=== PATIENT | female | born 1995 | race Caucasian/White ===

== ENCOUNTER 2021-02-08 20:30 | Inpatient (IN) | payer OTHER, BC ==
[2021-02-08] MEDS ORDERED: TERBUTALINE 1 MG/ML VIAL SQ PRN (21:23)
[2021-02-08] MEDS ORDERED: OXYTOCIN 10 UNIT/ML 1 ML VIAL IM PRN (21:23)
[2021-02-08] MEDS ORDERED: METHYLERGONOVINE 0.2 MG/ML 1 ML AMP IM PRN (21:23)
[2021-02-08] MEDS ORDERED: CARBOPROST TROMETHAMINE 250 MCG/ML 1 ML AMP IM PRN (21:23)
[2021-02-08] MEDS ORDERED: LIDOCAINE 0.5% (PF) 5 MG/ML (50 ML SDV) SQ PRN (21:23)
[2021-02-08] MEDS: LACTATED RINGERS 1,000 ML IV SCH ×2 (21:30→23:14)
--- NOTE | 2021-02-08 21:31 | P.HPOB ---
History of Present Illness H&P Date: 02/08/21 This is a 19-year-old white female 1 para 0 EDC 02/08/2021 at 40 weeks gestation who presents with contractions from home. Fetus is been active throughout the . She wonders whether she has been having fluid leakage through the day, yellow mucousy fluid being produced. history significant for blood type O positive, rubella status nonimmune. Urine culture, HIV testing, gonorrhea and chlamydia cultures, group B strep cultures all negative. One-hour Glucola elevated, three-hour GTT within normal limits. Past medical history is significant for asthma, exercise-induced. Past surgical history is negative. Current medications omeprazole 20 mg tabs prior to meals when necessary, vitamin daily. ALLERGIES none known. Family history significant for hypertension and breast cancer. On exam patient is 5 foot 4 inches, 185 pounds, vital signs are stable and she is afebrile. I am told that the amnio sure testing is positive. Cervix is 2-3 cm dilated, 90% effaced, -2 station, vertex presentation. Artificial amniorrhexis reveals yellow mucousy fluid. heart tones consistent with reactive NST. Impression: 40 week intrauterine , early labor. All signs reassuring. Rubella status nonimmune. Group B strep cultures negative. Plan: Analgesic options reviewed. Consider oxytocin augmentation pending progress. Anticipate normal spontaneous vaginal delivery. Close maternal and surveillance Review of Systems Constitutional: Reports as per [facility] Medications and Allergies Home Medications Medication Instructions Recorded Confirmed Type Omeprazole [PriLOSEC] 1 tab PO DAILY 02/08/21 02/08/21 History Allergies Allergy/AdvReac Type Severity Reaction Status Date / Time No Known Allergies Allergy Verified 02/08/21 21:01 Exam Intake and Output 02/08/21 02/08/21 02/08/21 06:59 14:59 22:59 Other: Weight 79.379 kg See dictation under HPI please Assessment and Plan Assessment: 40 week intrauterine , early labor. Negative group strep cultures, possible membrane rupture earlier today. Plan: Close maternal and surveillance. Consider oxytocin augmentation pending clinical progress. Anticipate normal spontaneous vaginal delivery. Time with Patient: Less than 30
[2021-02-08 22:00] VITALS: RESP 16
[2021-02-08 22:28] LABS: Basophils # (A) 0.1 k/uL (0-0.2); Basophils % (A) 0 %; Eosinophils # (A) 0.1 k/uL (0-0.7); Eosinophils % (A) 1 %; HCT 37.7 % (34.0-46.0); Lymphocytes # (A) 2.2 k/uL (1.0-4.8); Lymphocytes % (A) 16 %; MCH 30.3 pg (25.0-35.0); MCHC 34.5 g/dL (31.0-37.0); MCV 87.9 fL (80.0-100.0); Mean Platelet Volume 9.5; Monocytes # (A) 0.8 k/uL (0-1.0); Monocytes % (A) 5 %; Neutrophils # (A) 10.6 k/uL (1.3-7.7); Neutrophils % (A) 76 %; Platelet Count 242 k/uL (150-450); RBC 4.29 m/uL (3.80-5.40); RDW 13.3 % (11.5-15.5); WBC 13.9 k/uL (3.8-10.6)
[2021-02-08] MEDS ORDERED: SODIUM CHLORIDE 0.9% 100 ML BAG ONE (22:37)
[2021-02-08] MEDS ORDERED: ROPIVACAINE 5MG/ML 20ML VIAL ONE (22:37)
[2021-02-08] MEDS ORDERED: fentaNYL (PF) 50 MCG/ML 5 ML AMP ONE (22:37)
[2021-02-08] MEDS ORDERED: PENICILLIN G POTASSIUM 5,000,000 UNIT in DEXTROSE 5% IN WATER 100 ML IVPB STA ×2 (23:07)
[2021-02-09] MEDS: PENICILLIN G POTASSIUM 2,500,000 UNIT in DEXTROSE 5% IN WATER 100 ML IVPB SCH ×4 (03:24→08:18)
[2021-02-09] MEDS: OXYTOCIN 30 UNITS/500 ML NS 30 UNIT in SALINE 1 500ML.BAG IV SCH ×2 (04:20→05:23)
[2021-02-09] MEDS ORDERED: diphenhydrAMINE 25 MG CAP PO PRN (04:47)
[2021-02-09] MEDS ORDERED: ACETAMINOPHEN TAB 325 MG TAB PO PRN (04:47)
[2021-02-09] MEDS ORDERED: HYDROCORTISONE 2.5% RECTAL CREAM 30 GM TUBE RECTAL PRN (04:47)
[2021-02-09] MEDS ORDERED: LANOLIN CREAM 5 GM TUBE TOPICAL PRN (04:47)
[2021-02-09] MEDS ORDERED: SIMETHICONE 80 MG CHEWABLE PO PRN (04:47)
[2021-02-09] MEDS ORDERED: diphenhydrAMINE 50 MG CAP PO PRN (04:47)
[2021-02-09] MEDS ORDERED: BENZOCAINE/MENTHOL SPRAY 1 GM/SPRAY AEROSOL TOPICAL PRN (04:47)
[2021-02-09] MEDS ORDERED: diphenhydrAMINE 50 MG/ML 1 ML VIAL IVP PRN ×2 (04:47)
[2021-02-09] MEDS ORDERED: ZOLPIDEM 5 MG TAB PO PRN (04:47)
--- NOTE | 2021-02-09 04:48 | P.PROBDLV ---
Vaginal Delivery Note - . Vaginal Delivery Note: This is a 25-year-old white female 1 para 0 EDC 02/08/2021 at 40 weeks gestation who presented in active labor from home. Upon questioning, she wondered whether she had been leaking fluid since 2320. Fetus is been active throughout the . Blood type O+, rubella nonimmune, group strep cultures negative. Please see dictated history and physical for details. Patient was admitted, epidural was placed per her request. heart tones were reassuring throughout the first and second stages of labor. Ultimately patient became completely dilated at 0351 hours and began the second stage of labor at that time. Perineal body was prepped and draped in usual sterile fashion. Infant's head delivered occiput anterior and restituted accordingly. There was no nuchal cord noted. The left or anterior shoulder was delivered from underneath the pubic symphysis at which time the oropharynx, nasopharynx, and external nares were all bulb suctioned. Patient was officially delivered of a liveborn male infant at 0420 hours. Umbilical cord was doubly clamped and ligated, he was handed to waiting nurses for evaluation where scores of 9 and 9 at one and 5 minutes respectively were given. The placenta delivered spontaneously, it was inspected and noted to be intact with trivascular cord at 0423 hours. Uterus is now massaged. Careful inspection of the cervix, vagina, perineum, periurethral, and perirectal areas revealed a second-degree perineal laceration. This was repaired in the usual fashion using local lidocaine and 3-0 repeat suture. Good reapproximation was noted. Fundus is firm and in the midline, symmetric and 18 week size. All sponge needle and enhancement counts are correct. Patient is requesting circumcision for her son.
[2021-02-09] MEDS ORDERED: LIDOCAINE (PF) 10 MG/ML 2 ML VIAL SQ PRN (04:49)
[2021-02-09] MEDS ORDERED: ACETAMINOPHEN 40 MG/1.25 ML ORAL.SYRG PO PRN (04:49)
[2021-02-09] MEDS ORDERED: SUCROSE 24% 2 ML AMP PO PRN (04:49)
[2021-02-09] MEDS: IBUPROFEN 600 MG TAB PO SCH ×4 (05:04→20:07)
[2021-02-09] MEDS: SENNOSIDES-DOCUSATE SODIUM 1 EACH TAB PO SCH ×2 (07:45→20:07)
[2021-02-09] MEDS ORDERED: MEASLES-MUMPS-RUBELLA VACC/PF 12,500 UNIT/0.5 ML VIAL SQ ONE (09:40)
[2021-02-10] MEDS: IBUPROFEN 600 MG TAB PO SCH ×3 (01:35→16:14)
[2021-02-10 06:47] LABS: Basophils % (A) 0 %; Eosinophils # (A) 0.1 k/uL (0-0.7); Eosinophils % (A) 1 %; HCT 29.6 % (34.0-46.0); HGB 10.3 gm/dL (11.4-16.0); Lymphocytes # (A) 1.9 k/uL (1.0-4.8); Lymphocytes % (A) 11 %; MCH 30.8 pg (25.0-35.0); MCHC 34.6 g/dL (31.0-37.0); MCV 88.9 fL (80.0-100.0); Mean Platelet Volume 9.1; Monocytes # (A) 0.7 k/uL (0-1.0); Monocytes % (A) 4 %; Neutrophils # (A) 13.7 k/uL (1.3-7.7); Neutrophils % (A) 83 %; Platelet Count 214 k/uL (150-450); RBC 3.34 m/uL (3.80-5.40); RDW 13.5 % (11.5-15.5); WBC 16.5 k/uL (3.8-10.6)
--- NOTE | 2021-02-10 08:27 | P.PN ---
Subjective Progress Note Date: 02/10/21 Principal diagnosis: Doing well day #1 Slept well. Minimal pain. Minimal lochia rubra. Breast-feeding going well. No complaints Objective - Vital Signs Vital signs: Vital Signs Temp 97.5 F L 02/10/21 00:00 Pulse 99 02/10/21 00:00 Resp 16 02/10/21 00:00 BP 134/80 02/10/21 00:00 Pulse Ox 98 02/10/21 00:00 Intake & Output 02/09/21 02/10/21 02/10/21 18:59 06:59 18:59 Other: # Voids 1 2 # Bowel Movements 1 - Constitutional General appearance: Present: average body habitus, cooperative - EENT Eyes: Present: PERRLA ENT: Present: hearing grossly normal - Respiratory Respiratory: bilateral: CTA - Cardiovascular Rhythm: regular - Gastrointestinal General gastrointestinal: Present: normal bowel sounds - Genitourinary Genitourinary Comment(s): Perineal body clean and dry, intact - Neurologic Neurologic: Present: CNII-XII intact - Musculoskeletal Musculoskeletal: Present: strength equal bilaterally - Psychiatric Psychiatric: Present: A&O x's 3, appropriate affect, intact judgment & insight - Labs CBC & Chem 7: 02/10/21 06:06 Labs: Abnormal Lab Results - Last 24 Hours (Table) 02/10/21 Range/Units 06:06 WBC 16.5 H (3.8-10.6) k/uL RBC 3.34 L (3.80-5.40) m/uL Hgb 10.3 L (11.4-16.0) gm/dL Hct 29.6 L (34.0-46.0) % Neutrophils # 13.7 H (1.3-7.7) k/uL Assessment and Plan Assessment: Doing well day #1 Plan: Continue care. Likely discharge home tomorrow. currently on BiliBlank[employer] and not cleared for discharge at this time. Time with Patient: Less than 30
[2021-02-10] MEDS: SENNOSIDES-DOCUSATE SODIUM 1 EACH TAB PO SCH ×2 (09:00→19:53)
[2021-02-11] MEDS: IBUPROFEN 600 MG TAB PO SCH ×4 (00:24→14:06)
[2021-02-11 02:00] VITALS: TEMP 97.8
[2021-02-11 08:16] VITALS: BP 122/75; PULSE 77
--- NOTE | 2021-02-11 08:51 | P.DS ---
Providers Date of admission: 02/08/21 21:05 Expected date of discharge: 02/11/21 Attending physician: Phan Talamantes Primary care physician: Stated None - Discharge Diagnosis(es) (1) Normal spontaneous vaginal delivery Current Visit: Yes Status: Acute Hospital Course: The patient is a 25-year-old 1 para 0 admitted at 40-0/7 weeks by good dating parameters perches admitted in early active labor with documented spontaneous rupture of membranes and all signs reassuring. Her has been entirely uncomplicated and group B strep status is negative. On labor and delivery, she made progress on her own and had an epidural catheter placed for analgesia. She then ultimately progressed to complete where after she pushed to a normal spontaneous vaginal delivery of a viable 8 lbs. 11 oz. baby boy with Apgars of 9 at 1 minute and 9 at 5 minutes. Her course was unremarkable with vital signs or any stable and her temperature was afebrile throughout. She was deemed stable for discharge on day #2 and was discharged home to follow-up in the office in 6 weeks' time routinely. Discharge instructions included calling for any significantly increased bleeding or foul-smelling lochia, significantly increased fever abdominal pain, perineal complaints, breast complaints, or anything else that concerned her. She is additionally instructed to have nothing in the vagina for at least 6 weeks time to include intercourse. She understood her instructions and agrees to follow up as noted above. Discharge medications included continued vitamins as she has opted to at least try to pump. She additionally was to use [id number] analgesic pain medications as needed. Maternal blood type is O+ and rubella status is nonimmune. As a result, she was to receive the MMR vaccination prior to discharge. Procedures: #1. Epidural analgesia 2. Normal spontaneous vaginal delivery #3. Repair of perineal laceration Patient Condition at Discharge: Stable Plan - Discharge Summary New Discharge Prescriptions: No Action Omeprazole [PriLOSEC] 1 tab PO DAILY Discharge Medication List Omeprazole [PriLOSEC] 1 tab PO DAILY 02/08/21 [History] Follow up Appointment(s)/Referral(s): Phan Talamantes MD [STAFF PHYSICIAN] - 6 Weeks Discharge Disposition: HOME SELF-CARE
[2021-02-11] MEDS: SENNOSIDES-DOCUSATE SODIUM 1 EACH TAB PO SCH (09:27)
== END 2021-02-11 15:15 | disposition home or self-care (01) | DRG 807 ==
LOC: FBPOP 20:30 → 4FBP 21:05
PROVIDERS: ADMIT Obstetrics & Gynecology; ATTEND Obstetrics & Gynecology
PROC: 0KQM0ZZ Repair Perineum Muscle, Open Approach (ICD-10-PCS; principal; 2021-02-09)
PROC: 10E0XZZ Delivery of Products of Conception, External Approach (ICD-10-PCS; 2021-02-09)
DX: O70.1 Second degree perineal laceration during delivery (principal); Z37.0 Single live birth; Z3A.40 40 weeks gestation of pregnancy
CPT/HCPCS: 59025; 84112; 85025; 86850; 86900; 86901; 88307; 90707; 99213

== ENCOUNTER → 2022-05-15 | Outpatient (CLI) | payer BC ==
--- NOTE | 2022-05-15 11:52 | US ---
EXAMINATION TYPE: Ultrasound OB <= 14 week fetus DATE OF EXAM: 05/15/2022 11:02 AM COMPARISON: NONE CLINICAL HISTORY: 26-year-old female O26.851 SPOTTING COMPLICATING . EXAM PERFORMED: Transvaginal (TV) and Transabdominal (TA) FINDINGS: EXAM MEASUREMENTS: GESTATIONAL AGE / DATING Physician Established: Not yet established Dates by LMP: ( 5 weeks/4 days) EDC: 01/11/2023 Dates by First Scan: No previous this is first scan Dates by Current Scan for: No IUP seen at this time MATERNAL ANATOMY Uterus: Retroverted measuring 7.6 x 4.5 x 5.3 cm Right Ovary: 3.9 x 2.2 x 2.4 cm Left Ovary: 3.3 x 1.9 x 2.2 cm Post CDS / Adnexa: no Presence of free fluid: yes, mild to moderate Presence of corpus luteal cyst: no Presence of subchorionic bleed: no GESTATION / SURVEY IUP: No IUP seen at this time Date of LMP: 04/06/2022 Beta HcG (if available): Not available at this time IMPRESSION: 1. Retroverted uterus. No visualized intrauterine at this time. Correlate with beta-hCG lev els. A level of 2000 would be the threshold for visualization of a gestational sac by transvaginal sc anning. 2. Currently, differential considerations include too early to visualize intrauterine , fail ed , and nonvisualized ectopic . Appropriate follow-up recommended to ensure the de velopment of a viable . 3. Mild to moderate cul-de-sac free fluid. Again, appropriate follow-up recommended.
== END | disposition home or self-care (01) ==
LOC: RADUSWWP 10:14
PROVIDERS: ATTEND Obstetrics & Gynecology
DX: O26.851 Spotting complicating pregnancy, first trimester (principal); O20.0 Threatened abortion; Z3A.01 Less than 8 weeks gestation of pregnancy
CPT/HCPCS: 76801; 84702

== ENCOUNTER → 2022-05-17 | Outpatient (CLI) | payer BC | END | disposition home or self-care (01) | LOC: LABWHC1 08:30 | PROVIDERS: ATTEND Obstetrics & Gynecology | DX: O20.0 Threatened abortion (principal); Z3A.00 Weeks of gestation of pregnancy not specified | CPT/HCPCS: 36415; 84702 ==

== ENCOUNTER 2023-06-16 06:00 | Inpatient (IN) | payer BC ==
[2023-06-16] MEDS ORDERED: TRANEXAMIC 1,000 MG/100ML-NACL 1,000 MG in EMPTY BAG 1 BAG IV PRN (06:44)
[2023-06-16] MEDS ORDERED: OXYTOCIN 10 UNIT/ML 1 ML VIAL IM PRN (06:44)
[2023-06-16] MEDS ORDERED: LIDOCAINE 0.5% (PF) 5 MG/ML (50 ML SDV) SQ PRN (06:44)
[2023-06-16] MEDS ORDERED: miSOPROStoL 200 MCG TAB PO PRN (06:44)
[2023-06-16] MEDS ORDERED: METHYLERGONOVINE 0.2 MG/ML 1 ML AMP IM PRN (06:44)
[2023-06-16] MEDS ORDERED: CARBOPROST TROMETHAMINE 250 MCG/ML 1 ML AMP IM PRN (06:44)
[2023-06-16] MEDS ORDERED: TERBUTALINE 1 MG/ML VIAL SQ PRN (06:44)
[2023-06-16] MEDS: LACTATED RINGERS 1,000 ML IV SCH ×2 (06:45→10:36)
[2023-06-16] MEDS ORDERED: OXYTOCIN 30 UNITS/500 ML NS 30 UNIT in SALINE 1 500ML.BAG IV SCH ×2 (06:45→13:00)
[2023-06-16 07:07] LABS: Basophils % (A) 0 %; Eosinophils # (A) 0.1 k/uL (0-0.7); Eosinophils % (A) 1 %; HCT 38.1 % (34.0-46.0); HGB 12.9 gm/dL (11.4-16.0); Lymphocytes # (A) 1.5 k/uL (1.0-4.8); Lymphocytes % (A) 16 %; MCH 30.6 pg (25.0-35.0); MCHC 33.9 g/dL (31.0-37.0); MCV 90.3 fL (80.0-100.0); Mean Platelet Volume 9.5; Monocytes # (A) 0.4 k/uL (0-1.0); Monocytes % (A) 4 %; Neutrophils # (A) 6.9 k/uL (1.3-7.7); Neutrophils % (A) 77 %; Platelet Count 229 k/uL (150-450); RBC 4.22 m/uL (3.80-5.40); RDW 13.3 % (11.5-15.5)
[2023-06-16] MEDS ORDERED: NALBUPHINE 10 MG/ML (10 ML MDV) IV PRN (08:51)
--- NOTE | 2023-06-16 08:55 | P.HPOB ---
History of Present Illness H&P Date: 06/16/23 Chief Complaint: 39+ weeks, induction The patient is a 27-year-old 4 para 1021 admitted at 39+ weeks as established by last menstrual period and confirmed by 6 week ultrasound. She is admitted for elective induction of labor with all signs reassuring, category 1 heart rate tracing. Her has been entirely uncomplicated and group B strep status is negative. Obstetrical history: 4 para 10-1 with 1 term vaginal delivery and 2 early losses. Current statistics are listed in history of present illness. EDC of 06/20/2023 was established by last menstrual period and confirmed by 6 week ultrasound. Laboratory workup demonstrates a blood type of O+ with a negative antibody screen. Rubella status is immune. The remainder of the laboratory workup is within normal limits. One hour Glucola was normal and group B strep status is negative. Gynecologic history: Unremarkable with no history of any infections to include STDs. Review of Systems Review of systems is confined to history of present illness. Past Medical History Past Medical History: No Reported History History of Any Multi-Drug Resistant Organisms: None Reported Additional Past Surgical History / Comment(s): pt had surgery on her nose in 2011 due to a break Past Anesthesia/Blood Transfusion Reactions: No Reported Reaction Past Psychological History: No Psychological Hx Reported Smoking Status: Never smoker Past Alcohol Use History: None Reported Past Drug Use History: None Reported - Past Family History Father Family Medical History: No Reported History Mother Family Medical History: No Reported History Medications and Allergies Home Medications Medication Instructions Recorded Confirmed Type Omeprazole [PriLOSEC] 1 tab PO DAILY 02/08/21 06/16/23 History Vit No.179/Iron/Folic 1 tab PO DAILY 06/16/23 06/16/23 History [ Tablet] Allergies Allergy/AdvReac Type Severity Reaction Status Date / Time No Known Allergies Allergy Verified 06/16/23 06:42 Exam Intake and Output 06/15/23 06/16/23 06/16/23 22:59 06:59 14:59 Other: Weight 75.296 kg 75.296 kg In general, this is a well-developed, well-nourished white female in no acute distress. Her heart has a regular rhythm and rate without murmur. Her lungs are clear to auscultation bilaterally in all figueroa. Her abdomen is gravid, nondistended, has normal active bowel sounds, is soft, nontender, and without any palpable masses aside from the uterine fundus. Her extremities are without any cyanosis, clubbing, or edema and are nontender to palpation bilaterally. Digital cervical examination demonstrates her cervix to 3 cm dilated, 60% effaced, with the vertex in presentation at -2 station. Artificial rupture of membranes is carried out demonstrating clear fluid. Results Result Diagrams: 06/16/23 06:45 Assessment and Plan (1) Term Current Visit: Yes Status: Acute Code(s): Z34.90 - ENCNTR FOR SUPRVSN OF NORMAL , UNSP, UNSP TRIMESTER SNOMED Code(s): 65597758 Plan: The patient is admitted for induction of labor. Pitocin augmentation has been started and she has undergone artificial rupture of membranes. She will have close maternal and surveillance and expectant management will be practiced. She is a good candidate for either IV or epidural analgesia, whichever she may choose.
[2023-06-16] MEDS ORDERED: fentaNYL (PF) 50 MCG/ML 5 ML AMP ONE (10:23)
[2023-06-16] MEDS ORDERED: SODIUM CHLORIDE 0.9% 250 ML BAG ONE (10:23)
[2023-06-16] MEDS ORDERED: ROPIVACAINE 5 MG/ML 30 ML VIAL ONE (10:23)
[2023-06-16] MEDS ORDERED: BENZOCAINE/MENTHOL SPRAY 1 GM/SPRAY AEROSOL TOPICAL PRN (12:49)
[2023-06-16] MEDS ORDERED: diphenhydrAMINE 50 MG CAP PO PRN (12:49)
[2023-06-16] MEDS ORDERED: HYDROcodone/APAP 5-325MG 1 EACH TAB PO PRN (12:49)
[2023-06-16] MEDS ORDERED: diphenhydrAMINE 50 MG/ML 1 ML VIAL IVP PRN ×2 (12:49)
[2023-06-16] MEDS ORDERED: ZOLPIDEM 5 MG TAB PO PRN (12:49)
[2023-06-16] MEDS ORDERED: SIMETHICONE 80 MG CHEWABLE PO PRN (12:49)
[2023-06-16] MEDS ORDERED: HYDROcodone/APAP 7.5-325MG 1 EACH TAB PO PRN (12:49)
[2023-06-16] MEDS ORDERED: diphenhydrAMINE 25 MG CAP PO PRN (12:49)
[2023-06-16] MEDS ORDERED: HYDROCORTISONE 2.5% RECTAL CREAM 30 GM TUBE RECTAL PRN (12:49)
--- NOTE | 2023-06-16 12:53 | P.PROBDLV ---
Vaginal Delivery Note - . Vaginal Delivery Note: The patient is a 27-year-old 4 para 1021 admitted at 39-2/7 weeks by good dating parameters perches admitted for elective induction of labor with all signs reassuring and a favorable cervix. heart tones are category 1. Her has been uncomplicated and group B strep status is negative. On labor and delivery, she had Pitocin augmentation started and underwent artificial rupture of membranes for clear fluid. She progressed quickly through the latent phase of labor and had an epidural catheter placed for analgesia. She then progressed fairly quickly through the active phase of labor to complete and pushed over the course of approximately 5 minutes to a normal spontaneous vaginal delivery of a viable 7 lbs. 15 oz. baby girl with Apgars of 9 at 1 minute and 9 at 5 minutes delivered in the direct occiput anterior position. The placenta was delivered spontaneously, intact, and grossly normal with a grossly normal three-vessel cord inserted approximate 4-5 cm from the margin of the placental disc. There was a small second-degree midline perineal laceration noted in the site of the previous laceration which was repaired in standard fashion using 3-0 chromic catgut without difficulty. The patient did have a bothersome remnant of the hymeneal ring which she had asked to be excised at the time of delivery. The portion of hymeneal ring was located approximately 7:00 and was elevated with the forceps and removed sharply with scissors and discarded. There is no significant ongoing bleeding from the removal site. Estimated blood loss for the entire case was approximately 250 mL. There were no complications. All sponge, instrument, and needle counts were correct. Both mother and infant are resting comfortably in recovery.
[2023-06-16] MEDS: IBUPROFEN 600 MG TAB PO PRN ×2 (13:13→19:38)
[2023-06-16] MEDS: SENNOSIDES-DOCUSATE SODIUM 1 EACH TAB PO SCH (19:38)
[2023-06-16 21:56] VITALS: RESP 16
[2023-06-17] MEDS: ACETAMINOPHEN TAB 325 MG TAB PO PRN ×2 (00:16→06:00)
[2023-06-17 01:03] VITALS: TEMP 97.6
[2023-06-17] MEDS: IBUPROFEN 600 MG TAB PO PRN ×2 (02:05→12:39)
[2023-06-17 06:49] LABS: Basophils % (A) 0 %; Eosinophils # (A) 0.1 k/uL (0-0.7); Eosinophils % (A) 1 %; HCT 33.1 % (34.0-46.0); HGB 10.9 gm/dL (11.4-16.0); Lymphocytes # (A) 1.8 k/uL (1.0-4.8); Lymphocytes % (A) 16 %; MCH 30.2 pg (25.0-35.0); MCV 91.7 fL (80.0-100.0); Mean Platelet Volume 10.2; Monocytes # (A) 0.5 k/uL (0-1.0); Monocytes % (A) 4 %; Neutrophils # (A) 8.8 k/uL (1.3-7.7); Neutrophils % (A) 77 %; Platelet Count 194 k/uL (150-450); RBC 3.61 m/uL (3.80-5.40); RDW 13.1 % (11.5-15.5); WBC 11.5 k/uL (3.8-10.6)
--- NOTE | 2023-06-17 08:36 | P.DS ---
Providers Date of admission: 06/16/23 06:32 Expected date of discharge: 06/17/23 Attending physician: Phan Talamantes Primary care physician: Stated None - Discharge Diagnosis(es) (1) Term Current Visit: Yes Status: Acute (2) Normal spontaneous vaginal delivery Current Visit: Yes Status: Acute Hospital Course: The patient is a 27-year-old 4 para 1021 admitted at 39-2/7 weeks by good dating parameters. She is admitted for elective induction with a category 1 heart rate tracing. Her was uncomplicated and group B strep status is negative. On labor and delivery, she had Pitocin augmentation started followed by artificial rupture of membranes for clear fluid. She made progress to the active phase and had an epidural catheter placed for analgesia. She then progressed quickly through the active phase to complete and pushed to a normal spontaneous vaginal delivery of a viable 7 lbs. 15 oz. baby girl with Apgars of 9 at 1 minute and 9 at 5 minute's. Her course was unremarkable with vital signs remaining stable and her temperature was afebrile throughout. She was deemed stable for discharge on day #1 was discharged home to follow-up in the office in 6 weeks routinely. Discharge instructions included calling for any significantly increased bleeding or foul-smelling lochia, significantly increased fever or abdominal pain, perineal complaints, breast complaints, or anything else that concerned her. She was additionally instructed to have nothing in the vagina for at least 6 weeks time to include intercourse. She understood her instructions and agrees to follow up as noted above. Discharge medications included continued [id number] analgesic pain medications as needed. Maternal blood type is O+ and rubella status is immune. Procedures: #1. Pitocin induction #2. Artificial rupture of membranes #3. Epidural analgesia 4. Normal spontaneous vaginal delivery #5. Repair of perineal laceration #6. Excision of hymeneal remnant Plan - Discharge Summary New Discharge Prescriptions: No Action Vit No.179/Iron/Folic [ Tablet] 1 tab PO DAILY Omeprazole [PriLOSEC] 1 tab PO DAILY Discharge Medication List Omeprazole [PriLOSEC] 1 tab PO DAILY 02/08/21 [History] Vit No.179/Iron/Folic [ Tablet] 1 tab PO DAILY 06/16/23 [History] Follow up Appointment(s)/Referral(s): Phan Talamantes MD [STAFF PHYSICIAN] - 6 Weeks Discharge Disposition: HOME SELF-CARE
[2023-06-17 09:40] VITALS: BP 129/80; PULSE 77
[2023-06-17] MEDS: SENNOSIDES-DOCUSATE SODIUM 1 EACH TAB PO SCH (09:41)
== END 2023-06-17 14:10 | disposition home or self-care (01) | DRG 807 ==
LOC: 4FBP 06:32
PROVIDERS: ADMIT Obstetrics & Gynecology; ATTEND Obstetrics & Gynecology
PROC: 10E0XZZ Delivery of Products of Conception, External Approach (ICD-10-PCS; principal; 2023-06-16)
PROC: 0KQM0ZZ Repair Perineum Muscle, Open Approach (ICD-10-PCS; 2023-06-16)
PROC: 10907ZC Drainage of Amniotic Fluid, Therapeutic from Products of Conception, Via Natural or Artificial Opening (ICD-10-PCS; 2023-06-16)
PROC: 3E033VJ Introduction of Other Hormone into Peripheral Vein, Percutaneous Approach (ICD-10-PCS; 2023-06-16)
DX: O70.1 Second degree perineal laceration during delivery (principal); Z37.0 Single live birth; Z3A.39 39 weeks gestation of pregnancy
CPT/HCPCS: 85025; 86850; 86900; 86901